=== PATIENT | female | born 1980 | race Caucasian/White ===

== ENCOUNTER 2018-04-09 12:45 | Outpatient (CLI) | payer OTHER | END 2018-04-09 14:27 | disposition home or self-care (01) | LOC: LAB 12:45 | DX: Z34.01 Encounter for supervision of normal first pregnancy, first trimester (principal) ==

== ENCOUNTER → 2018-04-12 15:05 | Outpatient (CLI) | payer OTHER | END | disposition home or self-care (01) | LOC: LAB 15:05 | DX: Z34.81 Encounter for supervision of other normal pregnancy, first trimester (principal) ==

== ENCOUNTER 2018-05-19 10:50 | Outpatient (CLI) | payer OTHER | END 2018-05-19 10:53 | disposition home or self-care (01) | LOC: SONOGRAMA 10:50 | DX: M54.2 Cervicalgia (principal); M25.511 Pain in right shoulder; M25.562 Pain in left knee ==

== ENCOUNTER 2020-01-06 11:21 | Outpatient (CLI) | payer OTHER | END 2020-01-06 11:28 | disposition home or self-care (01) | LOC: RX STUDY 11:21 | PROVIDERS: ATTEND Obstetrics & Gynecology | DX: N94.89 Other specified conditions associated with female genital organs and menstrual cycle (principal) ==

== ENCOUNTER 2020-06-26 14:12 | Outpatient (CLI) | payer OTHER | END 2020-06-26 14:24 | disposition home or self-care (01) | LOC: RAD 14:12 | PROVIDERS: ATTEND Orthopaedic Surgery Sports Medicine | DX: M25.561 Pain in right knee (principal); M25.562 Pain in left knee ==

== ENCOUNTER 2020-12-11 06:46 | Day surgery (SDC) | payer OTHER ==
[~2020-12-11 06:46] MED LIST: PROTONIX40 MG PO
== END 2020-12-11 16:45 | disposition home or self-care (01) ==
LOC: CIR.AMB 06:46
PROVIDERS: ATTEND Specialist
DX: K42.0 Umbilical hernia with obstruction, without gangrene (principal); Z20.822 Contact with and (suspected) exposure to COVID-19

== ENCOUNTER 2023-01-06 12:13 | Outpatient (CLI) | payer OTHER | END 2023-01-06 12:21 | disposition home or self-care (01) | LOC: MAMO-SONO 12:13 | PROVIDERS: ATTEND Obstetrics & Gynecology | DX: N60.11 Diffuse cystic mastopathy of right breast (principal); Z12.31 Encounter for screening mammogram for malignant neoplasm of breast ==

== ENCOUNTER 2023-11-20 10:59 | Outpatient (CLI) | payer OTHER | END 2023-11-20 11:34 | disposition home or self-care (01) | LOC: NST 10:59 | PROVIDERS: ATTEND Obstetrics & Gynecology Maternal & Fetal Medicine | DX: Z34.83 Encounter for supervision of other normal pregnancy, third trimester (principal) ==

== ENCOUNTER 2023-11-20 12:40 | Inpatient (IN) | payer OTHER ==
[~2023-11-20] VITALS: Ht 175.3 cm; Wt 115.2 kg
[2023-12-16] VITALS (12 sets, daily range): BP systolic 108–148; BP diastolic 58–84; O2SAT 99
[2023-12-16] MEDS ORDERED: AMPICILLIN SODIUM 2,000 MG VIAL ONE (06:34)
[2023-12-16] MEDS ORDERED: PRENATAL CAPLE1 EAC1 PO (07:20)
[2023-12-16] MEDS ORDERED: PEPCID20 MG PO (07:20)
[2023-12-16 07:31] LABS: HEMATOCRIT 32.8 % (36.0-45.00); HEMOGLOBIN 11.3 g/dL (12.0-15.00); MEAN CELL VOLUME 89.2 fL (80.00-100.00); MEAN CORPUSCULAR HEMOGLOBIN 30.6 pg (27.00-32.0); MEAN CORPUSCULAR HGB CONC 34.3 g/dl (32.0-36.0); PLATELET COUNT 293 K/uL (150-450); RED BLOOD COUNT 3.68 M/uL (4.00-6.00)
[2023-12-16] MEDS ORDERED: OXYTOCIN 20 UNITS/500ML RL PIGGYBAG IV ONE (07:44)
[2023-12-16] MEDS ORDERED: RINGERS SOLUTION,LACTATED 1,000 ML IV SCH (07:45)
[2023-12-16] MEDS ORDERED: AMPICILLIN SODIUM 2,000 MG VIAL IV ONE (07:45)
[2023-12-16] MEDS ORDERED: OXYTOCIN 500 ML IV ONE (07:50)
[2023-12-16] MEDS ORDERED: FAMOTIDINE/PF 20 MG/2 ML VIAL ONE (07:51)
[2023-12-16] MEDS ORDERED: FAMOTIDINE/PF 20 MG/2 ML VIAL IV PUSH ONE (08:00)
[2023-12-16 08:04] LABS: INR < 0.93; PARTIAL THROMBOPLASTIN TIME 25.7 SECONDS (22.0-34.0); PROTHROMBIN TIME 9.8 SECONDS (9.0-11.5)
[2023-12-16 08:14] LABS: ALBUMIN 2.4 gm/dL (3.4-5.0); BILIRUBIN TOTAL 0.21 mg/dL (0.3-1.2); CALCIUM 9.5 mg/dL (8.5-10.1); CREATININE SERUM 0.65 mg/dL (0.55-1.02); GFR 100.95; POTASSIUM 3.87 mEq/L (3.5-5.1); TOTAL PROTEIN 6.4 gm/dL (6.4-8.2)
[2023-12-16] MEDS ORDERED: AMPICILLIN SODIUM 1,000 MG VIAL IV SCH (09:00)
[2023-12-16] MEDS ORDERED: CITRIC ACID/SODIUM CITRATE 30 ML BLIST.PACK PO ONE (11:30)
[2023-12-16] MEDS ORDERED: CHLORHEXIDINE GLUCONATE 120 ML BOTTLE TOP ONE (12:43)
[2023-12-16] MEDS ORDERED: ERYTHROMYCIN BASE OPHT 1GM EACH TUBE OP ONE ×2 (12:43→22:15)
[2023-12-16] MEDS ORDERED: LIDOCAINE HCL 1% 10ML VIAL ONE (12:43)
[2023-12-16] MEDS ORDERED: OXYTOCIN 20 UNITS/1000ML RL PIGGYBAG IV ONE (12:43)
[2023-12-16] MEDS ORDERED: ACETAMINOPHEN 500 MG GEL..CAP PO SCH (18:27)
[2023-12-16] MEDS ORDERED: CYCLOBENZAPRINE HCL 5 MG TABLET PO PRN (18:30)
[2023-12-16] MEDS ORDERED: OXYTOCIN 1,000 ML IV SCH (18:30)
[2023-12-16] MEDS ORDERED: CHLORHEXIDINE GLUCONATE 120 ML BOTTLE TP SCH (18:30)
[2023-12-16] MEDS ORDERED: DOCUSATE CALCIUM 240 MG CAPSULE PO SCH (21:00)
[2023-12-16] MEDS ORDERED: LIDOCAINE HCL 1% 10ML VIAL IJ ONE (22:15)
[2023-12-17 02:30] VITALS: BP 131/78
[2023-12-17 06:39] LABS: HEMATOCRIT 30.2 % (36.0-45.00); HEMOGLOBIN 10.6 g/dL (12.0-15.00); MEAN CELL VOLUME 88.7 fL (80.00-100.00); MEAN CORPUSCULAR HEMOGLOBIN 31.1 pg (27.00-32.0); MEAN CORPUSCULAR HGB CONC 35.1 g/dl (32.0-36.0); PLATELET COUNT 288 K/uL (150-450); RED BLOOD COUNT 3.41 M/uL (4.00-6.00); RED CELL DISTRIBUTION WIDTH 15.5 % (11.5-14.5)
[2023-12-17 09:00] VITALS: BP 125/77
[2023-12-17] MEDS ORDERED: PNV,CALCIUM 72/IRON/FOLIC ACID 1 TAB TABLET PO SCH (09:00)
[2023-12-17] MEDS ORDERED: FAMOtidine 20 MG TABLET PO NR (11:00)
[2023-12-17 16:00] VITALS: BP 117/74
[2023-12-17] MEDS ORDERED: FAMOtidine 20 MG TABLET PO SCH (17:00)
[2023-12-18] VITALS: BP 121/79
[2023-12-18 08:58] VITALS: BP 139/64
== END 2023-12-18 13:53 | disposition home or self-care (01) | DRG 807 ==
LOC: OB/GYN 12-09 12:39 → LDR 12-16 06:01 → OB/GYN 12-16 18:20
PROVIDERS: Obstetrics & Gynecology Gynecology; ADMIT Obstetrics & Gynecology; ATTEND Obstetrics & Gynecology
PROC: 10E0XZZ Delivery of Products of Conception, External Approach (ICD-10-PCS; principal; 2023-12-16)
PROC: 0KQM0ZZ Repair Perineum Muscle, Open Approach (ICD-10-PCS; 2023-12-16)
PROC: 4A1HXCZ Monitoring of Products of Conception, Cardiac Rate, External Approach (ICD-10-PCS; 2023-12-16)
DX: O70.1 Second degree perineal laceration during delivery (principal); O69.1XX0 Labor and delivery complicated by cord around neck, with compression, not applicable or unspecified; O99.824 Streptococcus B carrier state complicating childbirth; Z37.0 Single live birth; Z3A.41 41 weeks gestation of pregnancy; Z20.822 Contact with and (suspected) exposure to COVID-19

== ENCOUNTER 2023-11-24 09:52 | Outpatient (CLI) | payer OTHER | END 2023-11-24 10:28 | disposition home or self-care (01) | LOC: NST 09:52 | PROVIDERS: ATTEND Obstetrics & Gynecology | DX: Z34.83 Encounter for supervision of other normal pregnancy, third trimester (principal) ==

== ENCOUNTER → 2023-12-01 | Outpatient (CLI) | payer OTHER ==
[~2023-12-01] MED LIST changes: +PEPCID20 MG PO; +PRENATAL CAPLE1 EAC1 PO
== END | disposition home or self-care (01) ==
LOC: NST 09:47
PROVIDERS: ATTEND Obstetrics & Gynecology
DX: Z34.83 Encounter for supervision of other normal pregnancy, third trimester (principal)

== ENCOUNTER 2023-12-11 08:27 | Outpatient (CLI) | payer OTHER ==
[~2023-12-11 08:27] MED LIST changes: -PEPCID20 MG PO; -PRENATAL CAPLE1 EAC1 PO
== END 2023-12-11 09:33 | disposition home or self-care (01) ==
LOC: NST 08:27
PROVIDERS: ATTEND Obstetrics & Gynecology
DX: Z34.83 Encounter for supervision of other normal pregnancy, third trimester (principal)

== ENCOUNTER 2024-06-02 10:59 | Outpatient (CLI) | payer OTHER ==
[~2024-06-02 10:59] MED LIST changes: +PEPCID20 MG PO; +PRENATAL CAPLE1 EAC1 PO
== END 2024-06-02 11:14 | disposition home or self-care (01) ==
LOC: MRI 10:59
PROVIDERS: ATTEND General Practice
DX: M25.561 Pain in right knee (principal)
CPT/HCPCS: 73721